=== PATIENT | female | born 1965 | race Asian ===

== ENCOUNTER 2025-01-21 12:40 | Emergency (ER) | payer OTHER ==
[~2025-01-21] VITALS: Ht 154.9 cm; Wt 67.4 kg
[2025-01-21] MEDS ORDERED: ONDANSETRON HCL/PF 4 MG/2 ML VIAL ONE (13:15)
[2025-01-21] MEDS: ONDANSETRON HCL/PF - ER 4 MG/2 ML VIAL IV ONE (13:34)
[2025-01-21] MEDS: IV NS 0.9% 1,000 ML BAG IV ONE (13:34)
[2025-01-21 14:01] LABS: APPEARANCE,URINE SLIGHTLY CLOUDY (CLEAR); BASOPHILS % (AUTO) 0.2 % (0.0-2.0); BILIRUBIN,URINE NEGATIVE (NEGATIVE); BLOOD, URINE 3+ Ery/uL (NEGATIVE); COLOR,URINE YELLOW (YELLOW); HEMATOCRIT 40 % (33-45); KETONES,URINE 1+ mg/dL (NEGATIVE); LEUKOCYTE ESTERASE ,URINE NEGATIVE (NEGATIVE); LYMPHOCYTES # (AUTO) 0.8 K/uL (0.8-4.8); LYMPHOCYTES % (AUTO) 5.1 % (20.0-44.0); MEAN CORPUSCULAR HEMOGLOBIN 30 PG (26.0-33.0); MEAN CORPUSCULAR HGB CONC 35 g/dl (31.0-36.0); MEAN CORPUSCULAR VOLUME 86 fL (82-100); MONOCYTES # (AUTO) 0.5 K/uL (0.1-1.30); NEUTROPHILS # (AUTO) 14.7 K/uL (1.8-8.9); NEUTROPHILS % (AUTO) 91.7 % (43.0-81.0); NITRITE, URINE NEGATIVE (NEGATIVE); PLATELET COUNT (AUTO) 258 K/uL (150-450); PROTEIN,URINE 1+ mg/dl (NEGATIVE); RED BLOOD CELL COUNT(AUTO) 4.64 MIL/uL (4.0-5.2); RED CELL DISTRIBUTION WIDTH 13.2 % (11.5-15.0); UGLUCOSE NEGATIVE (NEGATIVE); UROBILINOGEN,URINE 0.2 EU/dL (0.2)
[2025-01-21 14:07] LABS: CALCIUM, SERUM 9.2 mg/dL (8.5-10.1); CREATININE 0.8 mg/dL (0.6-1.3); POTASSIUM 3.8 mmol/L (3.5-5.1)
[2025-01-21 14:13] LABS: ALBUMIN 3.6 g/dL (3.4-5.0); BILIRUBIN,DIRECT 0.1 mg/dL (0.0-0.2); BILIRUBIN,TOTAL 0.4 mg/dL (0.2-1.0); TOTAL PROTEIN, SERUM 7.4 g/dL (6.4-8.2)
[2025-01-21 14:22] LABS: CALCIUM OXALATE CRYSTALS,UR Few /HPF (None Seen); RBC,URINE 51-80 /HPF (0-2)
[2025-01-21 14:23] LABS: ADD URINE CULTURE YES; BACTERIA,URINE Many /HPF (None Seen); SQUAMOUS EPITHELIAL CELL,UR Few /HPF (None Seen)
[2025-01-21] MEDS ORDERED: CIPR-262 PO (15:11)
[2025-01-21] MEDS ORDERED: TAMS-12 PO (15:11)
[2025-01-21] MEDS ORDERED: CIPROFLOXACIN HCL 500 MG TABLET ONE (15:41)
[2025-01-21] MEDS ORDERED: TAMSULOSIN 0.4 MG CAP.SR.24H ONE (15:42)
[2025-01-21] MEDS: CIPROFLOXACIN HCL 250 MG TABLET PO ONE (15:46)
[2025-01-21] MEDS: TAMSULOSIN 0.4 MG CAP.SR.24H PO ONE (15:47)
[2025-01-21 15:51] VITALS: BP 145/78; TEMP 98.5; O2SAT 97
== END 2025-01-21 15:52 | disposition home or self-care (01) ==
LOC: ER 12:40
DX: N20.0 Calculus of kidney (principal); I10 Essential (primary) hypertension; R11.10 Vomiting, unspecified
CPT/HCPCS: 99285; 74176; 96374; 96361; 85025; 80048; 83690; 80076; 81001; 36415; J2405 ×2; J7030